=== PATIENT | female | born 1940 | race African-American/Black ===

== ENCOUNTER 2016-08-08 11:32 | Inpatient (IN) | payer MEDICARE, MEDICAID ==
[~2016-08-08] VITALS: Ht 162.6 cm; Wt 66.7 kg
[~2016-08-08 11:32] MED LIST: ACET-2178 GT; ASPI-1035 GT; BACL-141 GT; CHLO25TA27 GT; DOCU-138 PO; FERR-63 PO; FLUC100T42 PO; GABA-531 GT; HYDR-4134 PO; HYDR-523 GT; KEPP500 PO; LIP40 PO; MEGE400O PO; MULT-1146 PO; NIFE30TA83 PO; NIFE60TA64 PO; VITAMIN C PO; ZINC PO
[2016-08-08] MEDS ORDERED: ACETAMINOPHEN 650MG SUPP PR STA (11:51)
[2016-08-08] MEDS ORDERED: PIPERACILLIN SODIUM/TAZOBACTAM 4.5 G in DEXT 5% WATER 100 ML IV ONE ×2 (12:00→15:15)
[2016-08-08] MEDS ORDERED: VANCOMYCIN 1 G PREMIX 200 ML IV ONE (12:00)
[2016-08-08] MEDS ORDERED: SODIUM CHLORIDE 0.9% 1000ML BAG (SEPSIS BOLUS) IV ONE (12:00)
[2016-08-08 12:35] LABS: BASOPHILS % 0.3 % (0.0-2.0); HEMATOCRIT. 34.7 % (36.0-48.0); HEMOGLOBIN. 11.2 g/dL (12.0-16.0); LYMPHOCYTES % 8.8 % (20.0-50.0); MEAN CORPUSCULAR HEMOGLOBIN 28.1 pg (28.0-32.0); MEAN CORPUSCULAR HGB CONC 32.2 g/dL (31.0-37.0); MEAN CORPUSCULAR VOLUME 87.1 fL (81.0-99.0); MEAN PLATELET VOLUME 8.4 fl (7.4-10.4); MONOCYTES % 4.1 % (2.0-8.0); NEUTROPHILS % 86.8 % (40.0-76.0); PLATELET 386 x1000/uL (130-400); RED BLOOD CELL COUNT 3.98 mill/uL (4.2-5.4); RED CELL DISTRIBUTION WIDTH 15.3 % (11.6-14.6); WHITE BLOOD COUNT 18.8 x1000/uL (4.5-11.0)
[2016-08-08 12:38] LABS: INR 1.1; PARTIAL THROMBOPLASTIN TIME 32.3 sec (24.0-34.0)
[2016-08-08 12:39] LABS: BG BASE EXCESS 4.7 mmol/L (-2.0-2.0); BG CARBOXYHEMOGLOBIN 0.3 % (0.5-1.5); BG DEOXYHEMOGLOBIN 0.7 % (0.0-5.0); BG FRACTION INSPIRED OXYGEN 32; BG HCO3 ACT 28.7 mmol/L (22.0-26.0); BG METHEMOGLOBIN 0.2 % (0.0-1.5); BG OXYGEN SATURATION 99.3 % (92.0-98.5); BG OXYHEMOGLOBIN 98.8 % (94.0-97.0); BG PCO2 40.1 mmHg (35.0-45.0); BG PH 7.472 (7.350-7.450); BG PO2 178.5 mmHg (75.0-100.0); BG SAMPLE SITE RIGHT RADIAL; BG TOTAL HEMOGLOBIN 12.4 g/dL (12.0-18.0); BG VENT MODE NASAL CANNULA
[2016-08-08 12:46] LABS: ALANINE AMINOTRANSFERASE 22 IU/L (13-61); ALBUMIN 2.2 g/dL (3.4-5.0); ANION GAP 16; CALCIUM 8.8 mg/dL (8.5-10.1); CARBON DIOXIDE 33 mEq/L (21-32); CHLORIDE 96 mEq/L (98-107); INDEX HEMOLYSI 1 (1-3); INDEX ICTERIC 1 (1-4); INDEX LIPEMIC 1 (1-3); LIPASE 101 IU/L (73-393); NT PRO B-TYPE NATRIURETIC PEP 2452 pg/mL (5-125); TROPONIN I < 0.02 ng/mL (0.00-0.04); eGFR 25 mL/min (>60)
[2016-08-08 12:56] LABS: GLUCOSE URINE TRACE (NEGATIVE); KETONES URINE NEGATIVE (NEGATIVE); LEUKOCYTE ESTERASE URINE 3+ (NEGATIVE); NITRITE URINE NEGATIVE (NEGATIVE); OCCULT BLOOD URINE NEGATIVE (NEGATIVE); PH URINE 8.5 (4.5-8.0); PROTEIN URINE 4+ (NEGATIVE); SPECIFIC GRAVITY URINE 1.019 (1.005-1.030); UROBILINOGEN URINE 0.2 E.U./dL (0.2-1.0)
[2016-08-08 13:06] LABS: UREA NITROGEN BLOOD 83 mg/dL (7-21)
[2016-08-08 13:07] LABS: CLARITY URINE CLOUDY (CLEAR); COLOR URINE YELLOW (YELLOW)
[2016-08-08 13:09] LABS: TRIPLE PHOSPHATE CRYSTAL URINE 3+ /lpf
[2016-08-08 13:12] LABS: SQUAMOUS EPITHELIAL CELL URINE RARE /lpf (RARE/1+)
[2016-08-08 13:15] LABS: BACTERIA URINE 3+; RBC URINE 0-2 /hpf (0-2); WBC URINE TNTC /hpf (0-2)
[2016-08-08 16:00] VITALS: BP 103/51
[2016-08-08 18:19] VITALS: BP 103/51
[2016-08-08] MEDS ORDERED: ACETAMINOPHEN 650MG/20.3ML UDC GT PRN (19:30)
[2016-08-08 20:00] VITALS: BP 110/61
[2016-08-08] MEDS ORDERED: ENOXAPARIN 30MG/0.3ML SYR SUBCUT SCH (21:00)
[2016-08-08] MEDS: SODIUM CHLORIDE 0.9% 1,000 ML IV SCH (22:35)
[2016-08-08] MEDS: LEVOFLOXACIN 500MG PREMIX 100 ML IV SCH (22:41)
[2016-08-09] VITALS (8 sets, daily range): BP systolic 87–140; BP diastolic 48–72
[2016-08-09] MEDS ORDERED: PROT40 GT (03:41)
[2016-08-09] MEDS ORDERED: MULT9LIQ6 PO (03:41)
[2016-08-09] MEDS ORDERED: prostat GT (03:41)
[2016-08-09] MEDS ORDERED: ONDA4SOL2 GT (04:20)
[2016-08-09] MEDS ORDERED: ONDA4TAB5 PO (04:20)
[2016-08-09] MEDS ORDERED: DOCU-138 GT (04:20)
[2016-08-09] MEDS ORDERED: ALBU2.5V13 IH (04:20)
[2016-08-09] MEDS ORDERED: losartan GT (04:20)
[2016-08-09] MEDS ORDERED: ALBUTEROL (0.083%) 2.5MG/3ML NEB INH PRN ×2 (05:15→15:08)
[2016-08-09] MEDS ORDERED: ONDANSETRON HCL 4MG/5ML ORAL SOLN GT PRN (05:15)
[2016-08-09] MEDS ORDERED: BACLOFEN 10MG TABLET GT PRN (05:15)
[2016-08-09] MEDS ORDERED: ACETAMINOPHEN 325MG TABLET GT PRN (05:15)
[2016-08-09] MEDS: LANSOPRAZOLE 30MG DR CAPSULE GT SCH (06:16)
[2016-08-09 06:51] LABS: BASOPHILS % 0.4 % (0.0-2.0); EOSINOPHILS % 0.6 % (0.0-5.0); HEMATOCRIT. 29.1 % (36.0-48.0); HEMOGLOBIN. 9.4 g/dL (12.0-16.0); LYMPHOCYTES % 10.2 % (20.0-50.0); MEAN CORPUSCULAR HEMOGLOBIN 28.5 pg (28.0-32.0); MEAN CORPUSCULAR HGB CONC 32.4 g/dL (31.0-37.0); MEAN CORPUSCULAR VOLUME 87.9 fL (81.0-99.0); MEAN PLATELET VOLUME 8.4 fl (7.4-10.4); MONOCYTES % 4.1 % (2.0-8.0); NEUTROPHILS % 84.7 % (40.0-76.0); PLATELET 262 x1000/uL (130-400); RED BLOOD CELL COUNT 3.31 mill/uL (4.2-5.4); RED CELL DISTRIBUTION WIDTH 15.4 % (11.6-14.6); WHITE BLOOD COUNT 12.2 x1000/uL (4.5-11.0)
[2016-08-09] MEDS: ASPIRIN 81MG TABLET GT SCH (08:58)
[2016-08-09] MEDS: LOSARTAN POTASSIUM 50 MG TABLET GT SCH ×2 (08:59→20:35)
[2016-08-09] MEDS ORDERED: DOCUSATE SODIUM 100MG CAPSULE GT SCH (09:00)
[2016-08-09] MEDS ORDERED: PROSTAT GT SCH (09:00)
[2016-08-09] MEDS: DOCUSATE SODIUM SUGAR FREE 100MG/10ML UDC GT SCH (09:05)
[2016-08-09] MEDS ORDERED: SODIUM CHLORIDE 0.9% 500 ML IV NR (09:19)
[2016-08-09] MEDS ORDERED: SODIUM CHLORIDE 0.9% 1000ML BAG (SEPSIS BOLUS) IV ONE (09:30)
[2016-08-09] MEDS: GABAPENTIN SOLN 50MG/1ML UDC GT SCH ×3 (09:35→17:40)
[2016-08-09 09:45] LABS: ALBUMIN 1.7 g/dL (3.4-5.0); ANION GAP 13; CALCIUM 8.5 mg/dL (8.5-10.1); CARBON DIOXIDE 30 mEq/L (21-32); CHLORIDE 102 mEq/L (98-107); eGFR 28 mL/min (>60)
[2016-08-09 09:46] LABS: ALANINE AMINOTRANSFERASE 31 IU/L (13-61); INDEX HEMOLYSI 1 (1-3); INDEX ICTERIC 1 (1-4); INDEX LIPEMIC 1 (1-3)
[2016-08-09] MEDS: SODIUM CHLORIDE 0.9% 500 ML IV NR ×2 (09:50→11:23)
[2016-08-09 10:02] LABS: UREA NITROGEN BLOOD 81 mg/dL (7-21)
[2016-08-09] MEDS: SODIUM CHLORIDE 0.9% 1,000 ML IV SCH ×2 (11:48→20:36)
[2016-08-09] MEDS ORDERED: IPRATROPIUM/ALBUTEROL 0.5-3(2.5)MG/3ML NEB HHN PRN (13:30)
[2016-08-10] VITALS: BP 130/68
[2016-08-10] MEDS ORDERED: VANCOMYCIN 1 G PREMIX 200 ML IV SCH
[2016-08-10 04:00] VITALS: BP 113/61
[2016-08-10 06:26] LABS: BASOPHILS % 0.2 % (0.0-2.0); EOSINOPHILS % 3.3 % (0.0-5.0); HEMATOCRIT. 26.2 % (36.0-48.0); HEMOGLOBIN. 8.3 g/dL (12.0-16.0); LYMPHOCYTES % 12.7 % (20.0-50.0); MEAN CORPUSCULAR HEMOGLOBIN 27.5 pg (28.0-32.0); MEAN CORPUSCULAR HGB CONC 31.5 g/dL (31.0-37.0); MEAN CORPUSCULAR VOLUME 87.3 fL (81.0-99.0); MEAN PLATELET VOLUME 8.3 fl (7.4-10.4); MONOCYTES % 5.3 % (2.0-8.0); NEUTROPHILS % 78.5 % (40.0-76.0); PLATELET 267 x1000/uL (130-400); RED CELL DISTRIBUTION WIDTH 15.4 % (11.6-14.6)
[2016-08-10 06:58] LABS: CHLORIDE 109 mEq/L (98-107); INDEX HEMOLYSI 1 (1-3); INDEX ICTERIC 1 (1-4); INDEX LIPEMIC 1 (1-3)
[2016-08-10 07:02] LABS: ALANINE AMINOTRANSFERASE 83 IU/L (13-61); ALBUMIN 1.6 g/dL (3.4-5.0); ANION GAP 11; CALCIUM 8.6 mg/dL (8.5-10.1); CARBON DIOXIDE 29 mEq/L (21-32); MAGNESIUM 2.5 mg/dL (1.8-2.4); UREA NITROGEN BLOOD 60 mg/dL (7-21); eGFR > 60 mL/min (>60)
[2016-08-10 08:00] VITALS: BP 134/60
[2016-08-10] MEDS: LANSOPRAZOLE 30MG DR CAPSULE GT SCH (09:06)
[2016-08-10] MEDS: DOCUSATE SODIUM SUGAR FREE 100MG/10ML UDC GT SCH (09:06)
[2016-08-10] MEDS: GABAPENTIN SOLN 50MG/1ML UDC GT SCH ×3 (09:06→18:36)
[2016-08-10] MEDS: ASPIRIN 81MG TABLET GT SCH (09:07)
[2016-08-10] MEDS: LOSARTAN POTASSIUM 50 MG TABLET GT SCH ×2 (09:07→21:34)
[2016-08-10 12:00] VITALS: BP 135/65
[2016-08-10] MEDS: SODIUM CHLORIDE 0.9% 1,000 ML IV SCH (12:04)
[2016-08-10 16:00] VITALS: BP 140/68
[2016-08-10 20:00] VITALS: BP 140/66
[2016-08-10] MEDS: HYDROCODONE/ACETAMINOPHEN 5/325MG TABLET GT PRN (21:36)
[2016-08-10] MEDS: LEVOFLOXACIN 500MG PREMIX 100 ML IV SCH (21:36)
[2016-08-10] MEDS: VANCOMYCIN 750 MG PREMIX 150 ML IV SCH (23:44)
[2016-08-11] VITALS: BP 138/56
[2016-08-11] MEDS: SODIUM CHLORIDE 0.9% 1,000 ML IV SCH ×2 (03:40→13:50)
[2016-08-11 04:00] VITALS: BP 157/71
[2016-08-11] MEDS: LANSOPRAZOLE 30MG DR CAPSULE GT SCH (06:37)
[2016-08-11 06:50] LABS: BASOPHILS % 0.3 % (0.0-2.0); EOSINOPHILS % 3.1 % (0.0-5.0); HEMATOCRIT. 26.5 % (36.0-48.0); HEMOGLOBIN. 8.5 g/dL (12.0-16.0); LYMPHOCYTES % 16.1 % (20.0-50.0); MEAN CORPUSCULAR HGB CONC 32.1 g/dL (31.0-37.0); MEAN CORPUSCULAR VOLUME 87.4 fL (81.0-99.0); MEAN PLATELET VOLUME 8.4 fl (7.4-10.4); MONOCYTES % 5.2 % (2.0-8.0); NEUTROPHILS % 75.3 % (40.0-76.0); PLATELET 259 x1000/uL (130-400); RED BLOOD CELL COUNT 3.03 mill/uL (4.2-5.4); RED CELL DISTRIBUTION WIDTH 15.2 % (11.6-14.6); WHITE BLOOD COUNT 9.8 x1000/uL (4.5-11.0)
[2016-08-11 06:55] LABS: ALANINE AMINOTRANSFERASE 76 IU/L (13-61); ALBUMIN 1.6 g/dL (3.4-5.0); ANION GAP 8; CALCIUM 8.4 mg/dL (8.5-10.1); CARBON DIOXIDE 32 mEq/L (21-32); CHLORIDE 112 mEq/L (98-107); INDEX HEMOLYSI 1 (1-3); INDEX ICTERIC 1 (1-4); INDEX LIPEMIC 1 (1-3); MAGNESIUM 2.3 mg/dL (1.8-2.4); UREA NITROGEN BLOOD 43 mg/dL (7-21); eGFR > 60 mL/min (>60)
[2016-08-11 08:00] VITALS: BP 149/83
[2016-08-11] MEDS ORDERED: ACETAMINOPHEN 650MG/20.3ML UDC GT PRN (08:46)
[2016-08-11] MEDS: ASPIRIN 81MG TABLET GT SCH (08:59)
[2016-08-11] MEDS: LOSARTAN POTASSIUM 50 MG TABLET GT SCH ×2 (08:59→22:06)
[2016-08-11] MEDS: GABAPENTIN SOLN 50MG/1ML UDC GT SCH ×3 (08:59→18:07)
[2016-08-11] MEDS: DOCUSATE SODIUM SUGAR FREE 100MG/10ML UDC GT SCH (09:00)
[2016-08-11 12:00] VITALS: BP 162/86
[2016-08-11 16:00] VITALS: BP_SYST 141; BP_SYST 180; BP_DIAS 76; BP_DIAS 77
[2016-08-11] MEDS: VANCOMYCIN 750 MG PREMIX 150 ML IV SCH (18:07)
[2016-08-11 20:00] VITALS: BP 169/76
[2016-08-12] VITALS (8 sets, daily range): BP systolic 162–198; BP diastolic 80–102
[2016-08-12] MEDS: SODIUM CHLORIDE 0.9% 1,000 ML IV SCH ×2 (03:37→10:39)
[2016-08-12] MEDS: HYDROCODONE/ACETAMINOPHEN 5/325MG TABLET GT PRN ×3 (04:13→21:44)
[2016-08-12 06:37] LABS: BASOPHILS % 0.4 % (0.0-2.0); EOSINOPHILS % 2.9 % (0.0-5.0); HEMATOCRIT. 25.2 % (36.0-48.0); HEMOGLOBIN. 8.3 g/dL (12.0-16.0); LYMPHOCYTES % 19.9 % (20.0-50.0); MEAN CORPUSCULAR HEMOGLOBIN 28.3 pg (28.0-32.0); MEAN CORPUSCULAR HGB CONC 32.9 g/dL (31.0-37.0); MEAN PLATELET VOLUME 8.3 fl (7.4-10.4); MONOCYTES % 7.7 % (2.0-8.0); NEUTROPHILS % 69.1 % (40.0-76.0); PLATELET 257 x1000/uL (130-400); RED BLOOD CELL COUNT 2.93 mill/uL (4.2-5.4); RED CELL DISTRIBUTION WIDTH 14.9 % (11.6-14.6); WHITE BLOOD COUNT 9.7 x1000/uL (4.5-11.0)
[2016-08-12] MEDS ORDERED: MEROPENEM 500 MG in SODIUM CHLORIDE 0.9% 50 ML IV SCH (07:30)
[2016-08-12 07:49] LABS: ALANINE AMINOTRANSFERASE 72 IU/L (13-61); ALBUMIN 1.7 g/dL (3.4-5.0); ANION GAP 10; CALCIUM 8.3 mg/dL (8.5-10.1); CARBON DIOXIDE 30 mEq/L (21-32); CHLORIDE 110 mEq/L (98-107); INDEX HEMOLYSI 1 (1-3); INDEX ICTERIC 1 (1-4); INDEX LIPEMIC 1 (1-3); MAGNESIUM 2.2 mg/dL (1.8-2.4); UREA NITROGEN BLOOD 32 mg/dL (7-21); eGFR > 60 mL/min (>60)
[2016-08-12] MEDS: DOCUSATE SODIUM SUGAR FREE 100MG/10ML UDC GT SCH (10:39)
[2016-08-12] MEDS: FAMOTIDINE 20MG TABLET PO SCH ×2 (10:40→20:06)
[2016-08-12] MEDS: ASPIRIN 81MG TABLET GT SCH (10:40)
[2016-08-12] MEDS: GABAPENTIN SOLN 50MG/1ML UDC GT SCH ×3 (10:40→18:05)
[2016-08-12] MEDS: MEROPENEM 500 MG in SODIUM CHLORIDE 0.9% 50 ML IV SCH ×2 (10:40→22:08)
[2016-08-12] MEDS: LOSARTAN POTASSIUM 50 MG TABLET GT SCH ×2 (10:41→20:06)
[2016-08-13] VITALS: BP 141/67
[2016-08-13 04:00] VITALS: BP 134/63
[2016-08-13 08:00] VITALS: BP 167/73
[2016-08-13] MEDS: FAMOTIDINE 20MG TABLET PO SCH (09:11)
[2016-08-13] MEDS: DOCUSATE SODIUM SUGAR FREE 100MG/10ML UDC GT SCH (09:12)
[2016-08-13] MEDS: LOSARTAN POTASSIUM 50 MG TABLET GT SCH (09:12)
[2016-08-13] MEDS: GABAPENTIN SOLN 50MG/1ML UDC GT SCH (09:12)
[2016-08-13] MEDS: ASPIRIN 81MG TABLET GT SCH (09:12)
[2016-08-13 09:48] VITALS: BP 157/74
[2016-08-13] MEDS ORDERED: MEROPENEM 500 MG in SODIUM CHLORIDE 0.9% 50 ML IV SCH (10:00)
[2016-08-13] MEDS ORDERED: HYDRALAZINE HCL 50MG TABLET GT SCH (10:00)
[2016-08-13] MEDS ORDERED: HYDRALAZINE HCL 50MG TABLET PO SCH (21:00)
== END 2016-08-13 11:18 | DRG 871 ==
LOC: ER 11:32 → 8WST 17:51
PROVIDERS: ADMIT Hospitalist; ATTEND Hospitalist
DX: A41.9 Sepsis, unspecified organism (principal); G93.40 Encephalopathy, unspecified; R65.21 Severe sepsis with septic shock; L89.154 Pressure ulcer of sacral region, stage 4; N17.9 Acute kidney failure, unspecified; N39.0 Urinary tract infection, site not specified; I10 Essential (primary) hypertension; J44.9 Chronic obstructive pulmonary disease, unspecified; D64.9 Anemia, unspecified; E86.0 Dehydration; M19.90 Unspecified osteoarthritis, unspecified site; B95.2 Enterococcus as the cause of diseases classified elsewhere; Z16.21 Resistance to vancomycin; Z16.11 Resistance to penicillins; L89.890 Pressure ulcer of other site, unstageable; Z86.73 Personal history of transient ischemic attack (TIA), and cerebral infarction without residual deficits; Z93.1 Gastrostomy status; Z88.8 Allergy status to other drugs, medicaments and biological substances; Z79.899 Other long term (current) drug therapy
CPT/HCPCS: 36415; 36600; 71010; 80053; 80202; 81001; 82375; 82805; 83605; 83690; 83735; 83880; 84484; 85025; 85610; 85730; 87040; 87077; 87086; 87186; 92610; 93005; 96365; 96375; 99285; J1650; J1956; J2185; J2543; J3370; J7030; J7040; J7060; A4315

== ENCOUNTER 2016-10-09 17:34 | Emergency (ER) | payer MEDICARE, MEDICAID ==
[~2016-10-09] VITALS: Ht 165.1 cm; Wt 100.0 kg
[~2016-10-09 17:34] MED LIST changes: +ALBU2.5V13 IH; +AMIODARONE HCL 50MG/ML 3ML VIAL IV ONE; -ASPI-1035 GT; +ASPI-1159 GT; +DOCU-138 GT; -DOCU-138 PO; +DOPAMINE 400MG IN DEXT 5% 250ML PREMIX IV ONE; +EPINEPHRINE 0.1MG/ML (1:10,000) 10ML SYR ONE; +ETOMIDATE 2MG/ML 10ML VIAL IV ONE; -LIP40 PO; -MULT-1146 PO; +MULT9LIQ6 PO; +ONDA4SOL2 GT; +ONDA4TAB5 PO; +PROT40 GT; +SODIUM BICARBONATE 7.5% 0.9 MEQ/ML 50ML SYR IV ONE; +losartan GT; +prostat GT
[2016-10-09 18:11] VITALS: BP 83/74
[2016-10-09] MEDS ORDERED: EPINEPHRINE 0.1MG/ML (1:10,000) 10ML SYR ONE (18:14)
== END 2016-10-09 18:30 | disposition expired ==
LOC: ER 18:30
DX: I46.9 Cardiac arrest, cause unspecified (principal); I10 Essential (primary) hypertension; I63.9 Cerebral infarction, unspecified; J44.9 Chronic obstructive pulmonary disease, unspecified; Z88.8 Allergy status to other drugs, medicaments and biological substances
CPT/HCPCS: 31500; 92950; 99291; J0171; J0282; J1265; J3490; J7030